=== PATIENT | female | born 1965 | race Caucasian/White ===

== ENCOUNTER → 2018-10-10 | Day surgery (SDC) | payer OTHER ==
[~2018-10-10] MED LIST: ACETAMINOPHEN 1000 MG/100 ML IV ONE; ALBUTEROL PO; ANTI-INFLAMMATORY PO; BUPIVACAINE HCL 0.5% INJ 30 ML VIAL INJ ONE; CEFAZOLIN SOD 1 GM/NS 50ML 50 ML IV ONE; DEXAMETHASONE SOD PHOS INJ 4 MG/ML VIAL ONE; FENTANYL CITRATE/PF 100MCG/2 ML INJ ONE; FLONASE16 GM; GLYCOPYRROLATE INJ 1MG/ 5 ML SYR ONE; HYDROCODONE/APAP 7.5MG-325MG 1 EA TAB ONE; HYDROMORPHONE 2MG/ML 2 MG/ML ML ONE; KETOROLAC TROMETHAMINE 30 MG/ML VIAL ONE; LIDOCAINE HCL 2% LOCAL INJ 5 ML SDV VIAL INJ ONE; MIDAZOLAM HCL 2 MG/2 ML VIAL ONE; MULTIVITAMINS1 EAC8 PO; NEOSTIGMINE 5 MG/5ML SYR ONE; ONDANSETRON HCL INJ 2MG/ML 2ML 2 MG/ML VIAL ONE; PROPOFOL IV EMULSION 10 MG/ML 20 ML VIAL ONE; ROCURONIUM BROMIDE 10 MG/ML 5ML VIAL ONE; SEVOFLURANE INHAL SOLN 250 ML PEN BTL ONE; VITAMIN C100 MG PO; VITAMIN D400 UNIT PO; ZYRTEC-D TABLE1 EACH PO
[2018-10-10 09:58] VITALS: BP 118/62
--- NOTE | 2018-10-10 11:20 | Operative Report ---
DATE OF PROCEDURE: 10/10/2018 SURGEON: Olesya Mensah DPM PREOPERATIVE DIAGNOSES: 1. Left posterior malleolus fracture. 2. Left ruptured ankle syndesmosis. POSTOPERATIVE DIAGNOSES: 1. Left posterior malleolus fracture. 2. Left ruptured ankle syndesmosis. PLANNED PROCEDURE: 1. Left open reduction and internal fixation of posterior malleolus. 2. Left repair of syndesmosis. FILM WRITER: Olesya Mensah DPM ANESTHESIA: General with a posterior block consisting of 30 mL of 0.5% Marcaine plain mixed with 1 mL of dexamethasone phosphate. HEMOSTASIS: Pneumatic thigh tourniquet set at 350 mmHg for a total time of approximately 1 hour. MATERIALS: One 4.0 cannulated x 35 mm Samuels Sleep cortical bone screw; two Samuels Sleep SYNCHFIX syndesmotic repair; one [employer] plate and two Samuels Sleep 2.7 mm x 14 mm bone screws, one locking and one nonlocking, one four-hole medial plate. PATHOLOGY: None. ESTIMATED BLOOD LOSS: Less than 10 mL. PROCEDURE NOTE: The patient was seen in the preoperative waiting room, where the correct procedure and site was identified. The patient was brought to the operating room and placed on the operating table, where general anesthesia was initiated. A well-padded pneumatic tourniquet was placed about the patient's left thigh. The patient was then flipped into the prone position. The left foot, ankle, and leg were then scrubbed, prepped, and draped in the usual aseptic manner. The left foot, ankle, and leg was exsanguinated with an Esmarch bandage and the pneumatic thigh tourniquet was inflated to 350 mmHg for a total time of approximately 1 hour. Attention was directed to the posterior aspect of the patient's left heel and a posterolateral incision was made just along the lateral border of the Achilles tendon. The incision was carried through subcutaneous tissue differentiating them from superficial underlying structures. All vital neurovascular structures including the sural nerve were identified and retracted medial and lateral to allow for good visualization of the posterior aspect of the ankle joint. At this time, in the recess between the peroneal tendons and the flexor hallucis longus tendon, the plane was dissected down to the level of the tibia where the posterior malleolar fracture was easily identified and the posterior inferior tibiofibular ligament was noted to be intact. Utilizing intraoperative fluoroscopy, the fracture site was reduced and utilizing a guidewire for temporary fixation, a 4.0 cannulated bone screw was placed across the fracture site and noted to be intact. This was confirmed via intraoperative fluoroscopy. The wound was then copiously irrigated with sterile saline. Capsule and deep tissue were reapproximated with 3-0 Vicryl, subcutaneous tissue with 3-0 Vicryl, and the skin was closed using a running interlocking stitch with 4-0 nylon. Attention was then directed to the lateral malleolus, where a 4 cm linear incision was made proximal to the malleolus. The incision was carried through subcutaneous tissue them from deep or underlying structures. All vital neurovascular structures were identified and retracted medial and lateral and all bleeders were cauterized or ligated as deemed necessary. At this time, the fibula was identified and explored and there was noted to be no fibular fragment. At this time, the decision was made to reduce the syndesmosis by applying a four-hole plate for buttressing of the SYNCHFIX fixation. Utilizing intraoperative fluoroscopy, the plate was placed and noted to be in good anatomic alignment and was permanently fixated to the bone utilizing one 14 mm nonlocking screw and one 14 mm locking screw at the superior and inferior borders. Next, utilizing manufacture protocol, the SYNCHFIX was countersunk and a needle was passed through both the two central holes under intraoperative fluoroscopy, the button was placed on the medial side through a stab incision and reapproximated down to the bone while having the syndesmotic ligament reduced with a pelvic bone reduction forceps. Both SYNCHFIXs were tied down to anatomic alignment, the pelvic reduction forceps was removed and there was noted to be no gaping at the medial clear space and good tib-fib overlap. Both wounds on the medial and lateral were flushed copiously with sterile saline. The deep tissue was reapproximated with 3-0 Vicryl, subcutaneous tissue with 3-0 Vicryl, and the skin was closed using simple interrupted sutures on the medial side and simple interlocking suture on the lateral side. All wounds were then dressed with Adaptic, 4x4s, Kerlix, Webril, 4 x 30 posterior splint, 4 inch Alex wrap, and a 6 inch Alex wrap. The patient tolerated procedure and anesthesia well. The patient was transferred to postop recovery unit with vital signs stable and vascular status intact. The patient will be monitored there for a short period time before being sent home with the following written and oral instructions. 1. Keep the dressing clean, dry, and intact. 2. The patient is to remain nonweightbearing in the posterior splint to avoid any ambulation until being seen in the office. 3. The patient is given the office number to contact us if any problem should arise. LATESHA Velásquez/MODL /[id number]
== END | disposition home or self-care (01) ==
LOC: OR 05:00
PROVIDERS: ATTEND Podiatrist Foot & Ankle Surgery
DX: S93.492A Sprain of other ligament of left ankle, initial encounter (principal); S82.892A Other fracture of left lower leg, initial encounter for closed fracture; J45.909 Unspecified asthma, uncomplicated; X58.XXXA Exposure to other specified factors, initial encounter; Z91.018 Allergy to other foods; Z01.810 Encounter for preprocedural cardiovascular examination
CPT/HCPCS: 27769; 27829; 93005; J0131; J0690; J1100; J1170; J1885; J2001; J2250; J2405; J2704; J3490; C1713; J3010

== ENCOUNTER → 2022-07-25 | Outpatient (CLI) | payer BC ==
[~2022-07-25] MED LIST changes: -ACETAMINOPHEN 1000 MG/100 ML IV ONE; -BUPIVACAINE HCL 0.5% INJ 30 ML VIAL INJ ONE; -CEFAZOLIN SOD 1 GM/NS 50ML 50 ML IV ONE; -DEXAMETHASONE SOD PHOS INJ 4 MG/ML VIAL ONE; -FENTANYL CITRATE/PF 100MCG/2 ML INJ ONE; -GLYCOPYRROLATE INJ 1MG/ 5 ML SYR ONE; -HYDROCODONE/APAP 7.5MG-325MG 1 EA TAB ONE; -HYDROMORPHONE 2MG/ML 2 MG/ML ML ONE; -KETOROLAC TROMETHAMINE 30 MG/ML VIAL ONE; -LIDOCAINE HCL 2% LOCAL INJ 5 ML SDV VIAL INJ ONE; -MIDAZOLAM HCL 2 MG/2 ML VIAL ONE; -NEOSTIGMINE 5 MG/5ML SYR ONE; -ONDANSETRON HCL INJ 2MG/ML 2ML 2 MG/ML VIAL ONE; -PROPOFOL IV EMULSION 10 MG/ML 20 ML VIAL ONE; -ROCURONIUM BROMIDE 10 MG/ML 5ML VIAL ONE; -SEVOFLURANE INHAL SOLN 250 ML PEN BTL ONE
== END ==
LOC: US 07:30
PROVIDERS: ATTEND Radiology Body Imaging
DX: R16.0 Hepatomegaly, not elsewhere classified (principal)
CPT/HCPCS: 76700